=== PATIENT | male | born 1975 | race Caucasian/White ===

== ENCOUNTER 2017-07-03 23:35 | Emergency (ER) | END 2017-07-04 02:00 | disposition home or self-care (01) | DX: M94.0 Chondrocostal junction syndrome [Tietze] (principal) | CPT/HCPCS: 36415; 71010; 80048; 84484; 85025; 93005; 96374; J1885; Z7502; Z7610 ==

== ENCOUNTER 2017-10-08 17:58 | Emergency (ER) | END 2017-10-08 22:07 | disposition home or self-care (01) ==